=== PATIENT | female | born 1975 | race African-American/Black ===

== ENCOUNTER 2017-05-10 15:24 | Emergency (ER) | payer MEDICAID ==
[~2017-05-10] VITALS: Ht 172.7 cm; Wt 129.0 kg
[~2017-05-10 15:24] MED LIST: ALBU6.7H2
[2017-05-10] MEDS ORDERED: KETOROLAC 60MG/2ML VIAL IM ONE (19:30)
[2017-05-10 19:49] VITALS: BP 119/78
== END 2017-05-10 21:10 | disposition home or self-care (01) ==
LOC: ER 18:30
DX: M79.604 Pain in right leg (principal); M79.605 Pain in left leg; J45.909 Unspecified asthma, uncomplicated
CPT/HCPCS: 93970; 96372; 99284; J1885

== ENCOUNTER 2018-04-18 23:28 | Emergency (ER) | payer MEDICAID ==
[~2018-04-18] VITALS: Ht 172.7 cm; Wt 129.0 kg
[~2018-04-18 23:28] MED LIST changes: -ALBU6.7H2; +ALBU6.7H9
[2018-04-19 02:16] VITALS: BP 94/60
== END 2018-04-19 02:36 | disposition home or self-care (01) ==
LOC: ER 04-19 01:48
DX: T83.84XA Pain due to genitourinary prosthetic devices, implants and grafts, initial encounter (principal); J45.909 Unspecified asthma, uncomplicated; F12.10 Cannabis abuse, uncomplicated
CPT/HCPCS: 99283